=== PATIENT | female | born 1980 | race Caucasian/White ===

== ENCOUNTER 2020-09-12 13:50 | Outpatient (RCR) | payer BC, SELFPAY ==
[2017-02-15 05:29] VITALS: BMI 27.3
== END 2020-11-25 23:59 ==
LOC: IMMUN 13:50
PROVIDERS: PCP Student in an Organized Health Care Education/Training Program; Visit Provider Family Medicine
DX: Z23 Encounter for immunization (principal)
CPT/HCPCS: 0001A; 0002A; 91300